=== PATIENT | male | born 1960 | race Hispanic/Latino ===

== ENCOUNTER 2022-09-30 13:51 | Emergency (ER) | payer SELFPAY | END 2022-09-30 15:30 | disposition home or self-care (01) | LOC: CSHERS 13:51 | DX: S93.402A Sprain of unspecified ligament of left ankle, initial encounter (principal); I10 Essential (primary) hypertension; M10.9 Gout, unspecified; X50.1XXA Overexertion from prolonged static or awkward postures, initial encounter ==